=== PATIENT | male | born 1970 | race Caucasian/White ===

== ENCOUNTER 2020-05-26 10:20 | Emergency (ER) | payer OTHER, SELFPAY ==
[2020-05-26 10:30] VITALS: BP 132/70; PULSE 57; RESP 16; TEMP 37; O2SAT 98
--- NOTE | 2020-05-26 10:42 | ED.WOUNDLAC ---
HPI - Wound/Laceration General Chief Complaint: Wound/Laceration Stated Complaint: Tetnus shot Time Seen by Provider: 05/26/20 11:00 Source: patient and RN notes reviewed Mode of arrival: ambulatory Limitations: no limitations History of Present Illness HPI narrative: 50 year old male who presents to [facility] with complaints of pain and swelling to his left index finger at the PIP joint area. Patient states that 2 days ago he was cleaning out a a shed and he punctured his left index finger at the PIP joint with a pocket knife and since has experienced some pain and swelling to his left index finger. Patient has small puncture marked to dorsal aspect of his left index finger 0.25 in length with no depth noted. He displays no acute redness at puncture site but mild swelling to his left index finger noted, strong left radial pulse, full mobility of his left index finger noted. He reports that he has taken Tylenol and has applied Neosporin to wound area.Patient is right hand dominant. Onset (ago): day(s) (TuesdayMay 24) Location: other Extremity Location: Left: hand (left index finger) Place: home Patient tetanus UTD: No Context: accidental Associated symptoms: none and pain Treatments prior to arrival: other (Neosporin and Tylenol) Related Data Home Medications Medication Instructions Recorded Confirmed atorvastatin 80 mg PO DAILY 05/26/20 05/26/20 citalopram 40 mg PO DAILY 05/26/20 05/26/20 metoprolol succinate 50 mg PO DAILY 05/26/20 05/26/20 Allergies Allergy/AdvReac Type Severity Reaction Status Date / Time ibuprofen Allergy Unknown Unknown Verified 05/26/20 11:31 codeine Allergy Itching Verified 05/26/20 10:42 Review of Systems Review of Systems: Narrative: CONSTITUTIONAL: Denies fever, chills, or sweats. EYES: Denies visual changes, redness, or discharge. ENT: Denies rhinorrhea, congestion, sore throat, or otalgia. CARDIOVASCULAR: Denies chest pain, palpitations, or edema. RESPIRATORY: Denies cough or dyspnea. GASTROINTESTINAL: Denies abdominal pain, nausea, vomiting, or diarrhea. GENITOURINARY: Denies dysuria or hematuria. SKIN: Denies rash or itching.Small puncture wound to left index finger dorsal aspect at PIP joint MUSCULOSKELETAL: Denies back pain, joint pain, or myalgia. NEUROLOGIC: Denies headache, numbness, or weakness. PSYCHIATRIC: history anxiety or depression. All systems reviewed & are unremarkable except as noted in HPI and below PMFSH Past Medical History Medical History (Updated 05/28/20 @ 20:02 by Autumn Bridges NP) Hyperlipidemia Myocardial infarction Surgical History Surgical History (Updated 05/28/20 @ 19:56 by Autumn Bridges NP) Hx of heart artery stent Social History Social History (Updated 05/28/20 @ 20:04 by Autumn Bridges NP) Smoking status: Never smoker Alcohol intake: never Substance use: never Living arrangements: with family Gender identity (if verbalized by the patient): Male Comments at time of signature agree with nursing documentation of past medical, surgical and social history .There is no family history pertinent to presenting complaint. Exam Narrative: Exam Narrative: GENERAL: Well-appearing, well-nourished, and in no acute distress. HEAD: Normocephalic, atraumatic. EYES: PERRLA and EOMI. ENT: Nares clear, no rhinorrhea or epistaxis. Mucous membranes moist. NECK: Supple. No lymphadenopathy CHEST: Clear to auscultation. No respiratory distress.SAO2 98% on room air. HEART: Regular rate and rhythm, bradycardia is on beta eligio, No murmur heard. Normal peripheral pulses. ABDOMEN: Soft, nontender, nondistended, normal active bowel sounds. EXTREMITIES: Normal range of motion. No edema. SKIN: Warm, dry, no rash.0.25 cm puncture area to dorsal aspect of PIP joint of left index finger with mild swelling noted to finger with stated throbbing pain, no redness or acute warmth to left index finger. mobility sensation and circulation is intact
--- NOTE | 2020-05-26 11:00 | PC.NURSE ---
PT INFORMED WE DO NOT HAVE THE TDAP AVAILABLE AT THIS TIME AND MAY COME BACK AFTER 1230 TODAY WHEN IT WILL BE RESTOCKED PER PHARMACY. MAY RETURN FOR TDAP AFTER 1230 OR GET AT [facility] WHEN HE PICKS UP RX
--- NOTE | 2020-05-26 13:20 | PC.NURSE ---
PT HAS RETURNED TO RECEIVE TDAP.
[2020-05-26] MEDS: TETANUS,DIPHTHERIA,AC PERTUSSIS ADULT (0.5 ML) BOOSTRIX IM (13:27)
== END 2020-05-26 13:47 | disposition home or self-care (01) ==
PROVIDERS: Emergency Provider Registered Nurse; PCP Internal Medicine Geriatric Medicine
DX: S61.231A Puncture wound without foreign body of left index finger without damage to nail, initial encounter (principal); W26.0XXA Contact with knife, initial encounter; Z23 Encounter for immunization; E78.5 Hyperlipidemia, unspecified; I25.2 Old myocardial infarction; Z95.5 Presence of coronary angioplasty implant and graft
CPT/HCPCS: 90471; 90715; 99203; G0463

== ENCOUNTER 2022-07-14 07:44 | Outpatient (CLI) | payer OTHER, SELFPAY ==
--- NOTE | ~2022-07-14 | MR_ITS ---
EXAMINATION: MR shoulder RT wo con DATE: 07/14/2022 09:03 INDICATION: Right shoulder pain TECHNIQUE: Magnetic resonance imaging (MRI) of the right shoulder was performed without intravenous c ontrast. Sequences included axial PD-weighted FS FSE, coronal oblique PD-weighted FS FSE, coronal obl ique T2-weighted FS FSE, sagittal PD-weighted FS FSE, and sagittal T1-weighted SE. COMPARISON: None. FINDINGS: Coracoacromial arch: The acromion undersurface is curved in morphology (type II). The coracoacromial ligament is normal. M ild to moderate acromioclavicular osteoarthritis with tiny associated degenerative subchondral cyst. Rotator cuff: Mild to moderate supraspinatus and infraspinatus tendinopathy with prominent the conjoined portion of the tendon where there is a small mild bursal sided tear located approximately 1.5 cm medial to the greater tuberosity insertion, measuring 5 mm AP and involving approximately one third of the tendon t hickness. The teres minor and subscapularis tendons are normal. Normal rotator cuff muscle bulk and s ignal. Biceps tendon, glenoid labrum and glenohumeral cartilage: Mild tendinopathy without discrete tear of the intra-articular portion of the long head biceps tendon . There is amorphous mild increased signal involving the anterior to anteroinferior left glenoid labr um consistent with degenerative tearing. Remainder of the labrum appears normal. Mild partial-thickne ss cartilage loss with smooth chondral surface and without degenerative subchondral changes along the inferomedial aspect of the humeral head and along the cephalad third of the glenoid. Glenohumeral ca rtilage is normal. Fluid: Small amount of fluid in the long head biceps tendon sheath which is disproportionate to the small ph ysiologic amount fluid in the glenohumeral joint space which can be seen with bicipital tenosynovitis . No loose osteochondral bodies. Is also a small amount of fluid in the subacromial/subdeltoid bursa consistent with mild bursitis. Bones: Normal marrow signal with no edema, fracture or abnormal marrow replacing process. Mild cystic change at the greater tuberosity. IMPRESSION: 1. Mild to moderate supraspinatus and infraspinatus tendinopathy with small mild partial-thickness bu rsal sided tear at the critical zone of the conjoined portion of the supraspinatus and infraspinatus tendons. 2. Mild bicipital tenosynovitis with mild tendinopathy without tear of the intra-articular portion of the tendon. 3. Mild glenohumeral osteoarthritis with mild degenerative tearing at the anterior to anteroinferior glenoid labrum. 4. Mild subacromial/subdeltoid bursitis. Reviewed, dictated and finalized at location A. IMPRESSION: 1. Mild to moderate supraspinatus and infraspinatus tendinopathy with small mil d partial-thickness bursal sided tear at the critical zone of the conjoined por tion of the supraspinatus and infraspinatus tendons. 2. Mild bicipital tenosynovitis with mild tendinopathy without tear of the intr a-articular portion of the tendon. 3. Mild glenohumeral osteoarthritis with mild degenerative tearing at the anter ior to anteroinferior glenoid labrum. 4. Mild subacromial/subdeltoid bursitis.
== END 2022-07-14 07:45 | disposition home or self-care (01) ==
PROVIDERS: PCP Internal Medicine Geriatric Medicine
DX: M25.511 Pain in right shoulder (principal); S43.491A Other sprain of right shoulder joint, initial encounter; M65.821 Other synovitis and tenosynovitis, right upper arm; M19.011 Primary osteoarthritis, right shoulder; M75.51 Bursitis of right shoulder
CPT/HCPCS: 73221

== ENCOUNTER 2025-08-01 15:22 | Outpatient (CLI) | payer OTHER, SELFPAY ==
--- OUTSIDE RECORDS SUMMARY | 2025-08-01 15:24 | XMS_ITS | Clinical Summary ---
Author Organization [facility] Address [address] [place] [address] Care Team Providers Care Patrol Driver Name Role Phone Hellen Bernal MD Primary Care Provider [phone] Kassi Esqueda MD Unavailable Benjie Riddle MD Unavailable [phone] Marry Conn MD Unavailable [phone] Deena Moreno MD Unavailable Gee Smiley MD Unavailable [phone] Siva Larson MD Unavailable Geoff Lan MD PhD Unavailable Robyn Swain OD Unavailable Allergies Active Allergy Reactions Criticality Noted Date Comments Codeine Unknown Low 06/03/2017 Escitalopram Oxalate Other (See comments) Low 07/22 Sexual dysfunction Medications lancets misc 1 each by other route as directed Check blood sugar daily 100 each 2 3 Active blood glucose diagnostic strip 1 each by other route as directed Check blood sugar daily 50 strip 2 3 Active blood-glucose meter misc Use daily or as directed for monitoring of diabetes. 1 each 3 Active aspirin 81 mg chewable tabletIndication s:Ischemic heart disease due to coronary artery obstruction Take 1 tablet (81 mg total) by mouth daily 90 tablet 3 5 Active atorvastatin (LIPITOR) 80 mg tabletIndication s:Ischemic heart disease due to coronary artery obstruction Take 1 tablet (80 mg total) by mouth daily 90 tablet [address] (CYMBALTA) 30 mg capsuleIndicatio ns:Mood disorder Take 1 capsule (30 mg total) by mouth daily 90 capsule 3 5 11/14/19 Active metFORMIN XR (GLUCOPHAGE XR) 500 mg 24 hr tabletIndication s:Type 2 diabetes mellitus without complication, without long-term current use of insulin (HCC) Take 2 tablets (1,000 mg total) by mouth daily with breakfast 180 tablet 2 5 Active metoprolol XL (TOPROL-XL) 50 mg extended release tabletIndication s:Ischemic heart disease due to coronary artery obstruction Take 1 tablet (50 mg total) by mouth daily 90 tablet 3 5 Active tirzepatide (MOUNJARO) 2.5 mg/0.5 mL pen injector injectionIndicat ions:Type 2 diabetes mellitus without complication, without long-term current use of insulin (HCC) Inject 0.5 mL (2.5 mg total) under the skin once a week 2 mL 1 5 Active Active Problems Problem Noted Date Diagnosed Date Chewing tobacco nicotine dependence without comp lication 03/08/2024 Hx of colonic polyps 11/09/2023 Assessment & Plan (11/11/2023 6:51 PM GENERAL MANAGER [employer]AND [employer]): Last colonoscopy from 03/2022 showed greater than 30 1 to 3 mm polyps in the sigmoid and rectum consistent with hyperplastic polyps. Will schedule repeat colonoscopy given hx of Marte syndrome Right shoulder pain 05/14/2022 Assessment & Plan (06/10/2023 10:58 AM CDT): New burning pain to posterior shoulder, no radiation. Tenderness as noted above, no acute findings on exam. Likely tendonitis, tylenol/ibuprofen as needed. Aspercreme with lidocaine patches. Heat/ice as tolerated. Assessment & Plan (05/14/2022 8:55 AM CDT): Presents with R shoulder pain worse in the last week. Likely rotator cuff strain, denies injury or weakness. Positive Neers test on exam, no other acute findings. Will send to PT for evaluation. Encouraged Tylenol/Ibuprofen as needed for pain. Ice as tolerated. Can continue OTC creams also. Work note provided,copy in chart. Follow up in 6 weeks, sooner if needed. 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 Assessment & Plan (11/11/2023 6:58 PM GENERAL MANAGER [employer]AND DEPARTMENT): No active GI issues aside from some hemorrhoids with occasional bleeding Sister with Marte syndrome had hysterectomy, possible colon cancer, father with colon cancer No smoking, ETOH or illicit drug use Last colonoscopy from 03/2022 showed > 30 1 to 3 mm polyps in the sigmoid and rectum consistent with hyperplastic polyps EGD 03/2022 showed mildly active chronic duodenitis, carditis, gastritis and fundic gland polyps Labs from 05/2023 showed normal BMP, mildly decreased hemoglobin 12.9 otherwise normal CBC and iron studies. Normal LFTs from 02/2023 Plan Schedule colonoscopy Routine EGD surveillance not indicated given low risk with no family hx of gastric, or duodenal cancer and no active GI symptoms Assessment & Plan (08/05/2023 8:51 AM GENERAL MANAGER [employer]AND DEPARTMENT): Last colonoscopy in 03/2022 at [facility] showed over 30 benign polyps without bleeding. Recommended repeat in 1 year. Patient would prefer GI closer to home. Will REFER to Dr. Duffy at [facility]. No acute symptoms or findings on exam. Continue current regimen. Family history of Marte syndrome 12/19/2020 Family history of prostate cancer 12/19/2020 Obesity (BMI 30-39.9) 02/22/2020 Assessment & Plan (08/05/2023 8:41 AM GENERAL MANAGER [employer]AND DEPARTMENT): Up 4 lbs in last month on Ozempic. BMI at 34.3. no acute findings on exam. Will refill ozempic to 0.5 mg weekly due to abdominal pain with 1mg dose. Educated on AHA recommendation for heart healthy exercise. Continue heart healthy diet. Assessment & Plan (07/08/2023 8:40 AM CDT): Down another 6 lbs in last month on Ozempic. BMI at 33.5. no acute findings on exam. Will decrease ozempic to 0.5 mg weekly due to persistent abdominal pain. Educated on AHA recommendation for heart healthy exercise. Continue heart healthy diet. Assessment & Plan (06/10/2023 10:55 AM CDT): Down another 6 lbs in last month on Ozempic. BMI at 34.4. no acute findings on exam. Will increase ozempic to 1 mg weekly. Educated on AHA recommendation for heart healthy exercise. Continue heart healthy diet. Ischemic heart disease due to coronary artery ob struction 10/07/2017 Overview (02/17/2020): Stents 2006 2 RCA stents 02-24-[address] Riddle STENTS 2009 Three coronary stents in the right coronary artery 2009 DR. RIDDLE Assessment & Plan (12/16/2023 10:54 AM CDT): Stable on current regimen, no acute findings on exam, vitals stable. Labs from May. Continue current regimen. Refilled metoprolol and atorvastatin in office today. Chronic blood loss anemia 06/03/2017 Mood disorder 04/16/2017 Assessment & Plan (12/16/2023 10:55 AM CDT): Stable on current dose of Cymbalta. No acute findings on exam. Refilled today in office, relaxation techniques as previously discussed. Assessment & Plan (04/29/2023 12:41 PM CDT): Stable on current dose of Cymbalta. No acute findings on exam. Refilled today in office, relaxation techniques as previously discussed. Assessment & Plan (02/25/2023 12:25 PM CDT): Stable on current dose of Duloxetine. No new symptoms or concerns. Continue current regimen. Assessment & Plan (01/26/2023 9:06 PM CDT): wellbutrin not helping at all. citalopram made him too sleepy but helped with mood. PHQ-2 score of 1, ARNALDO-7 score of 3. Will rx Duloxetine as instructed. Sleep hygiene and relaxation techniques as previously discussed. Follow in 1 month. Assessment & Plan (12/10/2022 9:47 AM CDT): Citalopram working for mood, no new stressors. No SI/HI. No excessive caffeine use. Only sleeping approx 5 hours per night. No acute findings on exam. Will switch from Citalopram to wellbutrin XR 150mg daily in hopes this will improve fatigue. Educated blood sugars can also be causing fatigue, see plan for prediabetes above. Relaxation techniques encouraged. Use good sleep hygiene. Follow up 1 month. Restless leg 04/08/2017 Overview (04/08/2017): Confirmed on sleep test August 2013, Started Requip trial March 2017 Multiple-type hyperlipidemia 02/02/2014 Overview (12/22/2016): Hyperlipemia, mixed Bleeding hemorrhoids 02/02/2014 Overview (04/08/2017): Bleeding hemorrhoid treated with infrared coagulation by Dr. Conn August 2016 Assessment & Plan (07/18/2017 11:10 AM CDT): The patient was recently treated by GI for internal bleeding hemorrhoids, unfortunately a few days later the patient states he developed bleeding to the point if not more than prior to treatment. He continued to have pain. The hemorrhoidectomy procedure was explained to the patient, with special attention given to the difficult/painful post operative period. The hemorrhoids are grade 2-3. He wishes to proceed with the intervention. KATHIA (obstructive sleep apnea) 07/13/2013 Overview (06/29/2019): KASSI ESQUEDA MD MANAGING TWICE YEARLY OF JUNE 2019 IMPRESSION sleep study read by Dr. Esqueda August 2013 The above polysomnogram documents evidence of 1. Positive pressure therapy is effective in treated the patient's sleep disorder breathing. 2. Continuous positive pressure of 9 cm seems to be the best attempted pressure. 3. A small ResMed Moran F X nasal pillow was used. 4. Severe and continuous periodic limb movements were noted. Clinical correlation is recommended. AXIS A: Obstructive sleep apnea syndrome, 327.23. AXIS B: Polysomnography, 02346. AXIS C: Periodic limb movement, 327.51. August 12, 2013 at [facility] KASSI ESQUEDA Final View Details SLEEP DISORDER REPORT Patient: BYRON TAM Account: [id number] Room No: : 1970 Patient Type: [facility] Attend.: Hellen Bernal M.D. Admit Date: 08/12/2013 Dict.: Kassi Esqueda M.D., D.M. Disch. Date: 08/12/2013 COMPREHENSIVE POLYSOMNOGRAM INDICATION FOR STUDY The patient is a 43-year-old obese gentleman with symptoms of snoring, witnessed stoppage of breath while sleeping, and restless sleep. The present study was ordered as a titration study. No prior baseline details available for review. PAST MEDICAL HISTORY Heart attack and depression. VITAL STATISTICS Age: 43 years. Height: 66 inches. Weight: 202 pounds. Body mass index: 32.9. PROCEDURE The patient underwent an overnight polysomnogram with multiple-channel polysomnography to include EEG, sleep stage recording, cardiorespiratory monitoring, positive pressure therapy, as well as videotaping. DESCRIPTION OF POLYSOMNOGRAPHIC FINDINGS The patient's total time in bed was 453.8 minutes. Total sleep time was 289 minutes. Sleep efficiency was 53.7%. Latency from lights out to stage N1 was 68.1 minutes, latency to stage N2 was 100.1 minutes and latency to stage REM was 183 minutes. Sleep stage recording revealed stage awake of 166 minutes. Stage non-REM comprised 229.5 minutes (79.4% of total sleep time). This included stage N1 of 45.5 minutes (15.7% of total sleep time) and stage N2 of 184 minutes (63.7% of total sleep time). Stage REM comprised 59.5 minutes (24% of total sleep time). Continuous positive pressure therapy was initiated and pressures of 4 to 9 cm of water were attempted. Due to emergence of increasing central apneas, bilevel therapy with a backpack rate was added. Continuous positive pressures of 9 cm seem to be the best attempted pressure. Total recording was 185.5 minutes. Sleep efficiency was 85.2%. Adequate REM supine was obtained. The residual apnea/hypopnea index was 7.6. The lowest oxygen saturation was 87.6%. He seemed to tolerate the procedure well. A small Moran ResMed FX nasal pillow was used. Limb movement recording revealed 229 periodic limb movements. Periodic limb movement index was 47.5. Periodic limb movement arousal index was 4.8. Average heart rate during awake was 61.7 and during sleep was 59.4. The heart rhythm was sinus rhythm. IMPRESSION The above polysomnogram documents evidence of 1. Positive pressure therapy is effective in treated the patient's sleep disorder breathing. 2. Continuous positive pressure of 9 cm seems to be the best attempted pressure. 3. A small ResMed Moran F X nasal pillow was used. 4. Severe and continuous periodic limb movements were noted. Clinical correlation is recommended. AXIS A: Obstructive sleep apnea syndrome, 327.23. AXIS B: Polysomnography, 34021. AXIS C: Periodic limb movement, 327.51. Diplomate in Sleep Study ([place] [employer] and [employer]) Kassi Esqueda M.D., D.M. KRIS/sean Resolved Problems Problem Noted Date Diagnosed Date Resolved Date Morbid obesity with BMI of 40.0-44.9, adult 11/05/2022 03/17/2023 Prediabetes 11/05/2022 03/08/2024 Assessment & Plan (12/19/2023 8:40 PM CDT): Doing well on 0.5mg dose of mounjaro. Discussed going back up to 1mg dose but patient would like to stay at 0.5mg for awhile. Weight stable but still admits an appetite decrease. Still taking Metformin BID. No acute findings on exam. Last HbA1c in February was 5.7. repeat BMP was ordered but not completed, encoxruaged patient to get this drawn today. Refilled 0.5mg dose. Continue metformin as directed and low carb diet with heart healthy exercise. Keep follow and repeat diabetic labs in February. ADDENDUM: labs were still not done, will have staff call patient to have him come in for blood draw. Assessment & Plan (08/05/2023 8:40 AM GENERAL MANAGER [employer]AND DEPARTMENT): Doing well on 0.5mg dose of mounjaro. Discussed going back up to 1mg dose but patient would like to stay at 0.5mg for awhile. Up 4 lbs in last month but still admits an appetite decrease. Still taking Metformin BID. No acute findings on exam. Last HbA1c in February was 5.7. Refilled 0.5mg dose. Continue metformin as directed and low carb diet with heart healthy exercise. Assessment & Plan (07/08/2023 8:39 AM CDT): Taking ozempic weekly. Down 6lbs in 1month, no GI issues. Still taking Metformin BID. No acute findings on exam. Last HbA1c in February was 5.7. Will decrease to 0.5 mg dose due to persistent abdominal pain. Continue metformin as directed and low carb diet with heart healthy exercise. Assessment & Plan (06/10/2023 10:56 AM CDT): Taking ozempic weekly. Down 6lbs in 1month, no GI issues. Still taking Metformin BID. No acute findings on exam. Last HbA1c in was February was 5.7. Will increase to 1mg dose. Continue metformin as directed and low carb diet with heart healthy exercise. Assessment & Plan (04/29/2023 12:43 PM CDT): Re-started on Ozempic 6 weeks ago. Down 9lbs in 1month with sample pen, no GI issues. Still taking Metformin BID. No acute findings on exam. Last HbA1c in february was 5.7, fasting glucose on labs in november was 113. Will increase to 0.5mg dose. Continue metformin as directed and low carb diet with heart healthy exercise. Assessment & Plan (02/25/2023 12:24 PM CDT): Ozempic was denied through insurance despite PA. Down 7lbs in 1month with sample pen, no GI issues. Still taking Metformin BID. No acute findings on exam. Last HbA1c in 02/2021 was 5.6, fasting glucose on labs in november was 108. Continue metformin as directed and low carb diet with heart healthy exercise. Assessment & Plan (01/26/2023 9:11 PM CDT): Tolerating Metformin BID but still not losing any weight despite diet and walking. States morning sugars can get as high as 200. No acute findings on exam. BMI at 43.9. Given sample pen of Ozempic today in office. Continue diet/exercise. Follow in 1 month. Assessment & Plan (12/10/2022 12:15 PM CDT): Tolerating Metformin daily. AM sugars 120-170 according to home record. One sugar over 200 after morning after eating donuts. Most recent HbA1c was 02/2021 at 5.6. fasting glucose on recent labs was 108, all other labs unremarkable. Will increase metformin to BID. Discussed low carb diet in detail. Advised heart healthy exercise and weight loss. Follow in 1 month. Physical deconditioning 12/11/2021/12/2022 Encounter for screening for upper gastrointestinal disorder 10/23/2021 03/17/2023 Overview (10/23/2021): Added automatically from request for surgery [id number] Guaiac positive stools 07/13/201902/14 Overview (07/13/2019): Added automatically from request for surgery [id number] Chemosis of conjunctiva, left 07/12/2018 02/15/2020 Allergic reaction 07/12/2018 06/29/2019 Gastroesophageal reflux disease 02/02/2014 04/16/2017 Overview (12/22/2016): GERD (gastroesophageal reflux disease) Tiredness 11/16/2013 12/10/2022 Overview (12/25/2016): Tiredness Immunizations Immunization Administration Dates Next Due Influenza, Quadrivalent, Spl it, Preservative Free, Intramuscular 11/05/2022,09/05/2020,06/29/2019,06/23 MMR 11/08/2014 Pneumococcal Polysaccharide PPV23 06/29/2019 Tdap 12/11/2021,10/15/2011 Surgical History Surgery Date Site/Laterality Comments CARDIAC STENT PLACEMENT 07/20/2007 - 08/18/2007 COLONOSCOPY 06/16/2016 BAND HEMORRHOIDECTOMY 06/19/2017 - 07/19/2017 HEMORRHOID SURGERY 07/28/2017 Internal & External single column CARDIAC STENT PLACEMENT 02/24/[address] Riddle, 2 RCA stents ESOPHAGOSCOPY / EGD 04/11/2022 (+) Dr. Gee Wallace, peptic duodenitis COLONOSCOPY 04/14/2022 (+) Dr. Wallace single polyp pathology (-) hyperplastic COLONOSCOPY 11/09/2024 Sivashashi Larson, at [facility]- Patient with normal colonoscopy. Recommend high-risk screening every 5 years MD Gastroenterolog Medical History Medical History Date Comments Adjustment disorder with mixed anxiety and depre ssed mood 04/16/2017 Gastroesophageal reflux disease 02/02/2014 Hyperlipidemia KATHIA (obstructive sleep apnea) MSH6-related Marte syndrome (HNPCC5) 2020 Family History Medical History Relation Name Comments Prostate cancer Father Breast cancer Father's Sister 1 Breast cancer Father's Sister 2 No Known Problems Maternal Grandfather di ed in 80s No Known Problems Maternal Grandmother di ed in 80s Lung cancer Mother lung surg. age 51 Kidney disease Paternal Grandfather Breast cancer Paternal Grandmother Breast cancer Paternal cousin Endometrial cancer Sister 1 Deena Marte Syndrome Sister 1 Deena MSH6+ No Known Problems Sister 2 Keyana Relation Name Status Comments Father (Age 86) Father's Sister 1 Father's Sister 2 Maternal Grandfather (Age 85) Maternal Grandmother (Age 85) Mother (Age 51) Paternal Grandfather (Age 75) Paternal Grandmother Paternal cousin Alive Sister 1 Deena Alive Sister 2 Keyana Alive Social History Tobacco Use Types Packs/Day Years Used Date Smoking Tobacco: Former Smokeless Tobacco: Current Chew Tobacco Cessation:Ready to Q uit: Not Asked; Counseling Given: Not Answered Alcohol Use Standard Drinks/Week Comments Yes 0 (1 standard drink = 0.6 oz pur e alcohol) occassional AUDIT-C Answer Date Recorded Q1: How often do you have a drink containing alc ohol? 2-4 times a month 04/14/2022 Q2: How many drinks containi ng alcohol do you have on a typical day when you are drinking? 1 or 2 04/14/2022 Q3: How often do you have si x or more drinks on one occasion? 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 on file Not on file Not on file Last Filed Vital Signs Vital Sign Reading Time Taken Comments Blood Pressure 122/76 12/13/2024 10:00 AM CDT Pulse 74 12/13/2024 10:00 AM CDT Temperature 36.4 C (97.5 F) 11/14/2024 8:59 AM GENERAL MANAGER [employer]AND [employer]PART[employer] Respiratory Rate 16 11/14/2024 8:59 AM GENERAL MANAGER [employer]AND [employer]MENT Oxygen Saturation 95% 11/14/2024 8:59 AM GENERAL MANAGER [employer]AND [employer]PARTMENT Inhaled Oxygen Concentration - - Weight 93.4 kg (206 lb) 12/13/2024 10:00 AM CDT Height 167.6 cm (5' 6) 12/13/2024 10:00 AM CDT Body Mass Index 33.25 12/13/2024 10:00 AM CDT Plan of Treatment Health Maintenance Due Date Last Done Comments Dilated Eye Exam 1970 Pneumococcal vaccine <65 (2 of 2 - PCV) 06/29/2020 06/29/2019 Zoster Vaccine (1 of 2) 2021 Colon Cancer Screening-Colonoscopy 04/14/2023 04/14/2022, 06/16/2016, 06/16/2016 Hemoglobin A1C 05/16/2025 11/16/2024, 02/18, 02/27/2021 Covid-19 Vaccine (3 - 2024-2 6 season) 2025 05/29/2021, 05/01/2021 Influenza Vaccine (#1) 2025 , 09/05/2020, 06/29/2019, Additional history exists Depression Screening 11/14/2025 11/14/2024, 03/17/2023, 01/21/2023, Additional history exists Foot Exam 11/14/2025 11/14/2024 Regular Well Visit/Exam 18-64 11/14/2025, 03/17/2023, 12/11/2021, Additional history exists Albumin Creatinine Ratio, Urine 11/16/2025 11/16/2024, 03/11/2023, 03/13/2021 Lipid Panel 11/16/2025 11/16/2024, 03/0 12/2021, 02/27/2021, Additional history exists eGFR 11/16/2025 11/16/2024, 05/20, 03/11/2023, Additional history exists Prostate Cancer Screening-PSA 11/16/2026, 03/17/2023, 11/20/2021 DTaP/Tdap/Td Vaccine (3 - Td or Tdap) 12/12/2031 12/11/2021, 10/15/2011 Hepatitis B Screening Completed 11/16/2024 Hepatitis C Screening Completed 11/16/2024 Medical Devices Implanted Type Area Sec Accountant Device Identifier Shelf Expiration Date Model / Serial / Lot System Coronary Stent Synergy Pebax Everolimus Eluting [place] Chromium Plga L28 Mm L144 Cm Od3.5 Mm Radiopaque 1 Access Port Inflation Lumen Accepts .014 In Guidewire - [id number] Implanted:Qty: 1 on 02/23/2018 by Benjie Riddle MD at [facility] [employer] 10/25/2018 [id number] / / [id number] System Coronary Stent Synergy Pebax Everolimus Eluting [place] Chromium Plga L20 Mm L144 Cm Od2.75 Mm Radiopaque 1 Access Port Inflation Lumen Accepts .014 In Guidewire - [id number] Implanted:Qty: 1 on 02/23/2018 by Benjie Riddle MD at [facility] [employer] 08/16/2018 [id number] / / [id number] Procedures Procedure Name Priority Date/Time Associated Diagnosis Comments HEPATITIS C ANTIBODY Routine 11/16/2024 8:48 AM GENERAL MANAGER [employer] Need for hepatitis C screening test EGFR Routine 11/16/2024 8:48 AM GENERAL MANAGER [employer] Type 2 diabetes mellitus without complication, without long-term current use of insulin (HCC) HEMOGLOBIN A1C Routine 11/16/2024 8:48 AM GENERAL MANAGER [employer]AND [employer] Type 2 diabetes mellitus without complication, without long-term current use of insulin (HCC) LIPID PANEL Routine 11/16/2024 8:48 AM GENERAL MANAGER LAND DEPARTMENT Annual physical exam Type 2 diabetes mellitus without complication, without long-term current use of insulin (HCC) Ischemic heart disease due to coronary artery obstruction (HCC) ALBUMIN CREATININE RATIO, URINE Routine 11/16/2024 8:48 AM GENERAL MANAGER [employer]AND DEPARTMENT Type 2 diabetes mellitus without complication, without long-term current use of insulin (HCC) PSA SCREEN Routine 11/16/2024 8:48 AM GENERAL MANAGER [employer]AND DEPARTMENT Annual physical exam 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 73 m2 Comment: Interpretive Data Reference Interval Normal >/= 90 mL/min/1.73m2 Mildly decreased* 60 - 89 mL/min/1.73m2 Mildly to moderately decreased 45 - 59 mL/min/1.73m2 Moderately to severely decreased 30 - 44 mL/min/1.73m2 Severely decreased 15 - 29 mL/min/1.73m2 Kidney Failure < 15 mL/min/1.73m2 *Relative to young adult level Estimated glomerular filtration rate is determined by the 2020 CKD-EPI equation recommended by the National Kidney Foundation (A Unifying Approach to GFR Estimation: Recommendations of the NKF-ASK Task Force on Reassessing the Inclusion of Race in Diagnosing Kidney Disease, JASN 2020). The CKD-EPI equation should not be used for patients with unstable renal function and has not been validated in children and those over 70. Current interpretive data was last reviewed 2021. Testing performed by: [facility], [address] [place] [address]., [id number] Blood 11/16/2024 8:48 AM GENERAL MANAGER [employer]AND DE[employer]MENT 11/16/2024 12:40 PM GENERAL MANAGER [employer]AND [employer]PARTMENT us Hellen Bernal MD LAB BLOOD ORDERABLES Final Result Performing Organization Address [facility] Co de Phone Number CHANDRAKANT POLO [phone] [place] [address] * PSA screen (11/16/2024 8:48 AM GENERAL MANAGER LAND DEPARTMENT) PSA-Total 0.92 <=3.90 ng/mL Comment: Interpretive Data AGE SEX REFERENCE INTERVAL 0 minutes-150 years Female None 0 minutes-49 years Male None 50-59 years Male 0-3.90 60-69 years Male 0-5.40 70-79 years Male 0-6.20 80-150 years Male 0-6.20 The Gina PSA Total assay procedure was used. Results from different manufacturers or methods may not be comparable. Serial testing should be performed using the same method. Current interpretive data last revised 22. Testing performed by: [facility], [address] [place] [address]., [id number] Blood 11/16/2024 8:48 AM GENERAL MANAGER LAND DEPARTMENT 11/16/2024 12:21 PM GENERAL MANAGER LAND DEPARTMENT us Hellen Bernal MD LAB BLOOD ORDERABLES Final Result Performing Organization Address [facility] Co de Phone Number CHANDRAKANT POLO [address] [place] [address] * Hepatitis C antibody Blood (11/16/2024 8:48 AM GENERAL MANAGER LAND DEPARTMENT) Hep C Ab Nonreactive Nonreactive Comment: Interpretive Data Nonreactive: Antibodies to HCV not detected. Does NOT exclude the possibility of recent exposure to HCV. Equivocal: Equivocal for HCV antibodies. Supplemental molecular testing will be automatically performed to determine infection status in accordance with current CDC screening recommendations. Reactive: Positive for HCV antibodies. This may represent current or past HCV infection. Supplemental molecular testing will be automatically performed to determine current infection status in accordance with current CDC screening recommendations. Interpretive data was last revised on 2019. Testing performed by: [facility], [address] [place] [address]., [address] Blood 11/16/2024 8:48 AM GENERAL MANAGER LAND DEPARTMENT 11/16/2024 12:21 PM GENERAL MANAGER LAND DEPARTMENT us Hellen Bernal MD LAB MICROBIOLOGY - GENERAL ORDERABLES Final Result Performing Organization Address [facility] Co de Phone Number CHANDRAKANT [address] [facility] Department [place] [address] * Albumin Creatinine Ratio, Urine (11/16/2024 8:48 AM GENERAL MANAGER LAND DEPARTMENT) Albumin Ur 14.2 mg/L Comment: Interpretive Data No reference range established. Current interpretive data was last revised 2019. Testing performed by: [address] [address] Creatinine Ur 402.3 mg/dL CHANDRAKANT Comment: Interpretive Data No reference range established. Current interpretive data was last revised 2019. Testing performed by: [address] [address] Albumin Creatinine Ratio, Ur 4 1 - 29 mg/g CHANDRAKANT Comment:Testing performed by : [address] [address] Urine 11/16/2024 8:48 AM GENERAL MANAGER LAND DEPARTMENT 11/16/2024 12:21 PM GENERAL MANAGER LAND DEPARTMENT us Hellen Bernal MD LAB URINE ORDERABLES Final Result Performing Organization Address [facility] Co de Phone Number CHANDRAKANT [address] [facility] Department [employer] [place] [place] [address] * Hemoglobin A1c (11/16/2024 8:48 AM GENERAL MANAGER LAND DEPARTMENT) Hgb A1C 5.2 4.0 - 5.6 % Comment:Testing performed by : [address] [address] Estimated Average Glucose 103 mg/dL CHANDRAKANT POLO Comment: The ADA recommends reporting an estimated Average Glucose (eAG) with all Hemoglobin A1c results using the equation derived from a study of 507 normal and diabetic adults. Minority populations were underrepresented and children were not included. (Diabetes Care 31:9474-9530, 2008). The eAG is not equivalent to a fasting glucose. Testing performed by: [facility], [address] [place] [address]., [address] Blood 11/16/2024 8:48 AM GENERAL MANAGER LAND DEPARTMENT 11/16/2024 12:21 PM GENERAL MANAGER LAND DEPARTMENT us Hellen Bernal MD LAB BLOOD ORDERABLES Final Result CHANDRAKANT [address] Department [place] [address] * (ABNORMAL) Lipid panel (11/16/2024 8:48 AM GENERAL MANAGER LAND DEPARTMENT) Cholesterol 118 30 - 199 mg/dL Comment: Interpretive Data Ages < or = 19 years Acceptable: <170 mg/dL Borderline high: 170-199 mg/dL High: >or= 200 mg/dL Ages > or = 20 years Desirable: <200 mg/dL Borderline high: 200-239 mg/dL High: >or= 240 mg/dL Literature References: 1. Expert Panel on Integrated Guidelines for Cardiovascular Health and Risk Reduction in Children and Adolescents. Pediatrics 2011;128:S213 2. NCEP Expert Panel. Circulation 2004;110:227 Current Interpretive Data was last revised on 2018. Testing performed by: [facility], [address] [place] [address], [place]., [address] Triglycerides 111 <=149 mg/dL CHANDRAKANT POLO Comment: Interpretive Data Ages < or = 9 years Acceptable: <75 mg/dL Borderline high: 75-99 mg/dL High: >or= 100 mg/dL Ages 10 to 20 years Acceptable: <90 mg/dL Borderline high: 90-129 mg/dL High: >or= 130 mg/dL Ages > or = 20 years Desirable: <150 mg/dL Borderline high: 150-199 mg/dL High: 200-499 mg/dL Very high: >or= 499 mg/dL Literature References: 1. Expert Panel on Integrated Guidelines for Cardiovascular Health and Risk Reduction in Children and Adolescents. Pediatrics 2011;128:S213 2. NCEP Expert Panel. Circulation 2004;110:227 Current Interpretive Data was last revised on 2018. Testing performed by: [facility], [address] [place] [address]., [address] HDL 31(L) >=40 mg/dL CHANDRAKANT Comment: Interpretive Data Ages < or = 19 years Acceptable: >45 mg/dL Borderline low: 40-45 mg/dL Low: <40 mg/dL Ages > or = 20 years Desirable: >or= 60 mg/dL Low: <40 mg/dL Literature References: 1. Expert Panel on Integrated Guidelines for Cardiovascular Health and Risk Reduction in Children and Adolescents. Pediatrics 2011;128:S213 2. NCEP Expert Panel. Circulation 2004;110:227 Current Interpretive Data was last revised on 2018. Testing performed by: [address] [address] LDL, calculated 66 <=129 mg/dL CHANDRAKANT Comment: Interpretive Data Ages < or = 19 years Acceptable: <110 mg/dL Borderline high: 110-129 mg/dL High: >or= 130 mg/dL Ages > or = 20 years Optimal: <100 mg/dL Near optimal: 100-129 mg/dL Borderline high: 130-159 mg/dL High: >160 mg/dL Calculated using the Louis LDL-C estimating equation. This equation was implemented on 2024. Prior to this date LDL-C was estimated using the Friedewald equation. Literature References: 1. Expert Panel on Integrated Guidelines for Cardiovascular Health and Risk Reduction in Children and Adolescents. Pediatrics 2011;128:S213 2. NCEP Expert Panel. Circulation 2004;110:227 3. Louis Bourne et al. JANA Cardiol. 2020 January 17;5(5):540-548. doi: 10.1001/jamacardio.2020.0013 Current Interpretive Data was last revised on 2024. Testing performed by: [address] [address] Non-HDL Cholesterol 87 mg/dL CHANDRAKANT Comment: Interpretive Data Ages < or = 19 years Acceptable: <120 mg/dL Borderline high: 120-144 mg/dL High: >145 mg/dL Ages > or = 20 years When triglycerides are >200 mg/dL, Non-HDL cholesterol is a secondary target of therapy with treatment goals that are 30 mg/dL greater than the LDL cholesterol target. Literature References: 1. Expert Panel on Integrated Guidelines for Cardiovascular Health and Risk Reduction in Children and Adolescents. Pediatrics 2011;128:S213 2. NCEP Expert Panel. Circulation 2004;110:227 Current Interpretive Data was last revised on 2018. Testing performed by: [address], [address] Chol/HDL ratio 4 [facility] Comment:Testing performed by : [address] [address] Blood 11/16/2024 8:48 AM GENERAL MANAGER LAND DEPARTMENT 11/16/2024 12:21 PM GENERAL MANAGER LAND DEPARTMENT us Hellen Bernal MD LAB BLOOD ORDERABLES Final Result [address] [place] [address] * COLONOSCOPY (04/14/2022 1:06 PM CDT) Anatomical Region Laterality Modality Other Narrative Procedure Note Gee Smiley MD - 04/14/2022 1:06 PM CDT ENDOSCOPY LAB Patient Name: Byron Tam Procedure Date: 04/14/2022 1:06 PM Date of : 1970 Admit Type: Outpatient Age: 52 Gender: Male Attending MD: Gee Smiley M.D. Room: [facility] ENDOSCOPY ROOM 02 Note Status: Finalized Procedure: Colonoscopy Indications: Last colonoscopy: 2015, Marte Syndrome, [id number] Providers: Gee Smiley M.D. Referring MD: Medicines: Monitored Anesthesia Care Complications: No immediate complications. Estimated Blood Loss: Estimated blood loss was minimal. Procedure: Pre-Anesthesia Assessment: - Immediately prior to administration ofmedications, the patient was re-assessed for adequacy to receive sedatives. - Sedation was administered by an anesthesia professional. The sedation level attained wasmoderate. - The heart rate, respiratory rate, oxygen saturations, blood pressure, adequacy of pulmonary ventilation, and response to care were monitored throughout the procedure. - The physical status of the patient wasre-assessed after the procedure. The benefits, risks and alternatives of theprocedure and sedation were discussed and informed consentwas obtained. All questions were answered. Please referto the signed informed consent document in the medical record. The scope was passed under direct vision.The [id number] was introduced through the anusand advanced to the terminal ileum, with identificationof the appendiceal orifice and IC valve. Thecolonoscopy was performed without difficulty. The patient tolerated the procedure well. The quality of thebowel preparation was excellent. The quality of the bowel preparation was evaluated using the BBPS (BostonBowel Preparation Scale) with scores of: Right Colon = 3, Transverse Colon = 3 and Left Colon = 3 (entiremucosa seen well with no residual staining, smallfragments of stool or opaque liquid). The total BBPS score equals 9. The terminal ileum, the ileocecal valve,the appendiceal orifice and the rectum werephotographed. Bowel prep was administered using a split dose. Findings: Hemorrhoids were found on perianal exam. The digital rectal exam was normal. Pertinent negatives include no palpable rectal lesions. The terminal ileum appeared normal. >30 sessile polyps were found in the rectum, recto-sigmoid colon and sigmoid colon. The polyps were 1 to 3 mm in size. Eight of thesepolyps were removed with a piecemeal technique using a cold biopsy forceps. Resection and retrieval were complete. Non-bleeding external and internal hemorrhoids were found during retroflexion and during endoscopy. The hemorrhoids were moderate. The exam was otherwise without abnormality on direct and retroflexion views. Impression: - Hemorrhoids found on perianal exam. - The examined portion of the ileum was normal. - >30 1 to 3 mm polyps in the rectum, at the recto-sigmoid colon and in the sigmoid colon, eight were removed piecemeal using a cold biopsy forcepsfor sampling. Resected and retrieved. - Non-bleeding external and internal hemorrhoids. - The examination was otherwise normal on directand retroflexion views. Recommendation: - Discharge patient to home. - Advance diet as tolerated and high fiber diet indefinitely. - Continue present medications. - Use fiber, for example Citrucel, Fibercon, Konsylor Metamucil. - Await pathology results. - Repeat colonoscopy date to be determined after pending pathology results are reviewed for surveillance based on pathology results. - Continue routine yearly Marte syndrome screening including urinalysis and Account Services Analyst Oncology assessments,if needed. Consider upper endoscopy every 3-5 yearsfor those with higher risks including family history of stomach cancer and recurring symptoms of acidreflux or heartburn. See the NCCN guidelines for thelatest recommendations for Marte syndrome screening. - For polyp and cancer prevention: Consider daily aspirin if OK with primary care provider; Calcium, folate, and vitamin D; healthy diet low inprocessed and red meats, exercise regularly, maintain healthy weight. See [employer] Cancer website for moreprevention tips. - Contact Information: During normal business hours (8AM-4PM) - Pleasecall the Nurse Coordinator: [phone]. call person physician after hours, weekends andholidays: [phone] and asked for the Emmet-Rectalphysician business controller. Electronically signed by Gee Smiley MD Gee Smiley M.D. 04/14/2022 1:47:09 PM Number of Addenda: 0 Note Initiated On: 04/14/2022 1:06 PM Gee Smiley MD ENDOSCOPY PROCEDURES Final R esult from Last 3 Months or Most Recently Relevant to Health Maintenance Insurance [facility] PPO [facility] CHOICE PLUS [facility] CORE HEALTH PLAN [place] Advance Directives For more information, please contact: [phone] Documents on File Type Date Recorded Patient Air Chief Marshal Expl anation ADVANCE DIRECTIVE 11/14/2024 POWER OF A TTORNEY-MEDICAL ADVANCE DIRECTIVE 07/03/2018 POWER OF A TTORNEY-MEDICAL ADVANCE DIRECTIVE 06/23/2018 POWER OF A TTORNEY * Full Code (Latest Code Status on File) Date Activated Date Inactivated Comments 04/14/2022 11:06 AM 04/14/2022 6:26 PM * Full Code Date Activated Date Inactivated Comments 02/23/2018 4:29 PM 02/24/2018 12:47 PM Care Teams Patrol Driver Relationship Specialty Start Date End Date Hellen Bernal MD PCP - General 08/24/13 Kassi Esqueda MD Neurology 04/08/17 Benjie Riddle MD Cardiovascular Disease 04/08/17 Marry Conn MD Gastroenterology 04/08/17 Deena Moreno MD Grinder Brake Lining Genetics 01/30/21 Gee Smiley MD [address] [facility] [phone] [place] [address] Surgeon Colon and Rectal Surgery 05/29/21 Siva Larson MD [address] [facility] [phone] [place] [address] General Surgery 11/13/24 Geoff Lan MD PhD [address] [facility], [facility] [address] [place] [address] Referring Physician Gastroenterology 11/14/24 Robyn Swain OD [address] [place] [address] Optometry 11/14/24
--- OUTSIDE RECORDS SUMMARY | 2025-08-01 15:24 | XMS_ITS | Clinical Summary ---
Author Organization [facility] Address [address] [place] [address] Phone Care Team Providers Care Dental Appliance Fixer Name Role Phone Hellen Bernal MD Primary Care Provider [phone] Anastacia Maguire APRN, BONDING MOLDER Unavailable Allergies Active Allergy Reactions Criticality Noted Date Comments Codeine Rash,Itching Low 06/03/2017 Escitalopram Oxalate Other (see Comments) Low 07/22 Sexual dysfunction Medications citalopram (CeleXA) 40 MG Tablet Take 40 mg by mouth. 1 Active metoprolol Succinate (TOPROL-XL) 50 MG TABLET SR 24 HR Take 50 mg by mouth every morning. 1 Active Aspirin Low Dose 81 MG Chewable Tablet CHEW AND SWALLOW 1 TABLET DAILY 1 Active traZODone (DESYREL) 50 MG Tablet Take 25-100 mg by mouth. 0 Active promethazine-de xtromethorphan (PROMETHAZINE-D M) 6.25-15 MG/5ML SyrupIndication s:Cough Take 5 mL by mouth every 4 hours as needed for Cough. 240 mL 1 Active Additional Information Patient not taking.Reported on 10/26/2024 atorvastatin (LIPITOR) 80 MG Tablet Take 80 mg by mouth. 4 Active Blood Glucose Monitoring Suppl (GlucoCom Blood Glucose Monitor) Device Use daily or as directed for monitoring of diabetes. 3 Active Glucose Blood (Precision QID Test) Strip 1 Each by Other route. 3 Active DULoxetine (CYMBALTA) [address] Particles Take 30 mg by mouth daily. Active metFORMIN (GLUCOPHAGE-XR) 500 MG TABLET SR 24 HR TAKE 2 TABLETS BY MOUTH EVERY DAY WITH BREAKFAST Active Ozempic, 0.25 or 0.5 MG/DOSE, 2 MG/3ML Solution Pen-injector once a week. Tuesday 4 Active Multiple Vitamin (MULTI-VITAMIN PO) Take by mouth daily. 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 Conn August 2016 Family History Medical History Relation Name Comments Cancer Father Cancer Sister 1 other Sister 1 MARTE Other-comment Sister 2 MARTE Relation Name Status Comments Father Mother Sister 1 Sister 2 Alive Social History Tobacco Use Types Packs/Day Years Used Date Smoking Tobacco: Former Cigarettes 0 Q uit: 2013 Smokeless Tobacco: Current Chew Alcohol Use Standard Drinks/Week Comments Yes 0 (1 standard drink = 0.6 oz pur e alcohol) RARELY Sex and Gender Information Value Date Recorded Sex Assigned at Not on file Legal Sex Male 8:44 PM CDT Gender Identity Not on file Sexual Orientation Not on file Last Filed Vital Signs Vital Sign Reading Time Taken Comments Blood Pressure 128/82 11/09/2024 8:10 AM WATER VALVE MECHANIC Pulse 75 11/09/2024 8:10 AM WATER VALVE MECHANIC Temperature 36 C (96.8 F) 11/09/2024 8:10 AM WATER VALVE MECHANIC Respiratory Rate 12 11/09/2024 8:10 AM WATER VALVE MECHANIC Oxygen Saturation 96% 11/09/2024 8:10 AM WATER VALVE MECHANIC Inhaled Oxygen Concentration - - Weight 93.9 kg (207 lb) 10/26/2024 2:17 PM WATER VALVE MECHANIC Height 167.6 cm (5' 6) 10/26/2024 2:17 PM WATER VALVE MECHANIC Body Mass Index 33.41 10/26/2024 2:17 PM WATER VALVE MECHANIC Plan of Treatment Health Maintenance Due Date Last Done Comments Hepatitis C Virus (HCV) Screening 1970 Hepatitis B Immunization (1 of 3 - 19+ 3-dose series) 1990 Cologuard 2016 Immunochemical Fecal Occult Blood 2016 Pneumococcal Immunization (50+ years) (2 of 2 - PCV) 2021 06/29/2019 Zoster Immunization (1 of 2) 2021 Influenza Immunization (#1) 05/20/202510/20, 09/05/2020, 06/29/2019, Additional history exists SARS-COV-2 Immunization (3 - 2024- season) 2025 05/29/2021, 05/01/2021 Colonoscopy 11/09/2029 11/09/2024, 10/21, 04/14/2022 Colorectal Cancer Screening 11/09/2029 Respiratory Syncytial Virus (RSV) Immunization (Adult) (1 - 1-dose 75+ series) 2046 Pneumococcal Immunization Combined Discontinued 06/29/2019 DTaP/Tdap/Td Immunization Discontinued 12/11/2021, TdaP Immunization Completed 12/11/2021, 10/15/2011 Human Papillomavirus (HPV) Immunization Aged Out No longer eligible based on patient's age to complete this topic Meningococcal Immunization (ACWY) Aged Out No longer eligible based on patient's age to complete this topic Rotavirus Immunization Aged Out No lo nger eligible based on patient's age to complete this topic Procedures Procedure Name Priority Date/Time Associated Diagnosis Comments GI IMAGING - COLONOSCOPY Routine 11/09/2024 6:49 AM WATER VALVE MECHANIC from Last 3 Months or Most Recently Relevant to Health Maintenance Results * GI IMAGING - COLONOSCOPY (11/09/2024 6:49 AM WATER VALVE MECHANIC) us Siva Dada Larson MD IMG DIAGNOSTIC ORDERABLES Final Result from Last 3 Months or Most Recently Relevant to Health Maintenance Insurance [place] [address] [place] [id number] Care Teams Dental Appliance Fixer Relationship Specialty Start Date End Date Hellen Bernal MD [address] [facility] [place] [address] PCP - General Geriatric Medicine 03/05/21 Anastacia Maguire APRN, BONDING MOLDER [address] [place] [address] Nurse Practitioner Advanced Practice Nurse 06/05/24
--- OUTSIDE RECORDS SUMMARY | 2025-08-01 15:24 | XMS_ITS | Encounter Summary ---
Author Organization [facility] Address [address] [place] [address] Phone Care Team Providers Care Can Worker Name Role Phone Hellen Bernal MD Primary Care Provider [phone] Kassi Obregon MD Unavailable Benjie Riddle MD Unavailable [phone] Marry Conn MD Unavailable [phone] Pierre Lucas MD Unavailable [phone] Ernesto Álavrez MD Unavailable [phone] Deena Moreno MD Unavailable Gee Smiley MD Unavailable [phone] Diloln Hatch MD Unavailable Siva Larson MD Unavailable [phone] Geoff Lan MD PhD Unavailable [phone] Robyn Swain OD Unavailable [phone] Encounter Details Date Type Department Care Team (Late st Contact Info) Description 07/14/2022 Orders Only [facility] [address] [place] [address] Hellen Bernal MD [address] [place] [address] Social History Tobacco Use Types Packs/Day Years Used Date Smoking Tobacco: Former Smokeless Tobacco: Current Chew Alcohol Use Standard [...] more points, staff should administer the PHQ-9) 6 12/11/2021 Sex and Gender Information Value Date Recorded Sex Assigned at Not on file Legal Sex Male 10:00 AM ENGINEERING RECRUITER Gender Identity Not on file Sexual Orientation Not on file 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 Not on file Not on file documented as of this encounter Plan of Treatment Not on file documented as of this encounter Procedures Procedure Name Priority Date/Time Associated Diagnosis Comments SCAN - RADIOLOGY/IMAGING 07/14/2022 documented in this encounter Results * SCAN - RADIOLOGY/IMAGING (07/14/2022) Anatomical Region Laterality Modality Other Hellen Bernal MD Final Resu lt documented in this encounter Visit Diagnoses Not on filedocumented in this encounter Care Teams Can Worker Relationship Specialty Start Date End Date Hellen Bernal MD PCP - General 08/24/13 Kassi Obregon MD Neurology 04/08/17 Benjie Riddle MD Cardiovascular Disease 04/08/17 Marry Conn MD Gastroenterology 04/08/17 Pierre Lucas MD Surgeon General Surgery 07/22/17 11/13/24 Ernesto Á[place] [address] [facility] [address] [place] [address] Consulting Physician Cardiology 02/23/18 03/16/23 [place] [address] [facility] [address] [place] [address] Commercial Lines Account Executive Genetics 01/30/21 Gee Smiley MD [address] [facility] [phone] [place] [address] Surgeon Colon and Rectal Surgery 05/29/21 Dillon Hatch MD [address] [facility] [phone] [place] [address] Consulting Physician Urology 05/29/21 11/13/24 Siva Larson MD [address] [facility] [phone] [place] [address] General Surgery 11/13/24 Geoff Lan MD PhD [address] [facility], [facility] [address] [place] [address] Referring Physician Gastroenterology 11/14/24 Robyn Swain, OD [address] [place] [address] Optometry 11/14/24 documented as of this encounter
--- OUTSIDE RECORDS SUMMARY | 2025-08-01 15:24 | XMS_ITS | Encounter Summary ---
Author Organization [facility] Address [address] [place] [address] Phone Care Team Providers Care Woods Warden Name Role Phone Hellen Bernal MD Primary Care Provider + [phone] Kassi Obregon MD Unavailable Benjie Riddle MD Unavailable [phone] Marry Conn MD Unavailable [phone] Pierre Lucas MD Unavailable [phone] Ernesto Álvarez MD Unavailable Deena Moreno MD Unavailable Gee Smiley MD Unavailable Dillon Hatch MD Unavailable [phone] Erensto Álvarez MD Unavailable Siva Larson MD Unavailable [phone] Geoff Lan MD PhD Unavailable [phone] Robyn Swain OD Unavailable [phone] Encounter Details Date Type Department Care Team (Late st Contact Info) Description 07/21/2017 Orders Only [facility] [address] [place] [address] Hellne Bernal MD [address] [place] [address] Social History Tobacco Use Types Packs/Day Years Used Date Smoking Tobacco: Former Smokeless Tobacco: Current Chew Alcohol Use Standard Drinks/Week Comments Yes 0 (1 standard drink = 0.6 oz pur e alcohol) occassional Sex and Gender Information Value Date Recorded Sex Assigned at Not on file Legal Sex Male 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 Gender Identity Not on file Sexual Orientation Not on file documented as of this encounter Functional Status * BP Location Answer Date of Assessment Author Left arm 07/22/2017 10:37 AM CDT Sorin Fortune MA * BP Location Answer Date of Assessment Author Left arm 07/22/2017 10:37 AM CDT Sorin Fortune MA documented as of this encounter Plan of Treatment Not on file documented as of this encounter Visit Diagnoses Not on filedocumented in this encounter Additional Health Concerns Infection Onset Date Last Indicated Resolved Time COVID: Suspected 05/01/2021 05/01/2021 05/01/2021 11:37 AM CDT documented as of this encounter Care Teams Woods Warden Relationship Specialty Start Date End Date Hellen Bernal MD PCP - General 08/24/13 Kassi Obregon MD Neurology 04/08/17 Benjie Riddle MD Cardiovascular Disease 04/08/17 Marry Conn MD Gastroenterology 04/08/17 Pierre Lucas MD Surgeon General Surgery 07/22/17 11/13/24 Ernesto Á[place]arez [place] [id number] [facility] [address] [place] [address] Consulting Physician Cardiology 02/23/18 03/16/23 [place] [id number] [facility] [address] [place] [address] Order Detailer Genetics 01/30/21 Gee Smiley MD [address] [facility] [id number] [place] [address] Surgeon Colon and Rectal Surgery 05/29/21 Dillon Hatch MD [address] [facility] [place] [id number] [place] [address] Consulting Physician Urology 05/29/21 11/13/24 Ernesto Álvarez MD [address] [facility] [address] [place] [id number] Consulting Physician Cardiology 05/29/21 12/10/21 Siva Larson MD [address] [place] [address] [address] [place], [place] [address], [place] [address] General Surgery 11/13/24 Geoff Lan MD PhD [address] [facility] GASTROENTEROLOGY, [facility] [address] [place] [address] Referring Physician Gastroenterology 11/14/24 Robyn Swain, OD [address] [place] [address] Optometry 11/14/24 documented as of this encounter
[2025-08-01 19:20] LABS: Alanine Aminotransferase 24 U/L (6-50); Albumin Level 4.0 g/dL (3.5-5.1); Alkaline Phosphatase 99 U/L (38-126); Anion Gap 5 mmol/L (4-12); Aspartate Amino Transferase 42 U/L (17-59); Bilirubin,Total 0.8 mg/dL (0.2-1.3); Blood Urea Nitrogen 9 mg/dL (9-20); Calcium 8.7 mg/dL (8.4-10.2); Carbon Dioxide 32 mmol/L (22-30); Chloride 99 mmol/L (98-107); Cholesterol 104 mg/dL (0-200); Estimated Glomerular Filt Rate > 60; Glucose 99 mg/dL (65-110); HDL Direct 29 mg/dL; Potassium 4.5 mmol/L (3.4-5.0); Sodium 136 mmol/L (137-145); Total Protein 6.8 g/dL (6.3-8.2); Triglycerides 163 mg/dL (<150)
[2025-08-01 19:48] LABS: Thyroid Stimulating Hormone Reflex 0.445 uIU/mL (0.465-4.68)
[2025-08-01 22:09] LABS: Hemoglobin A1C 5.2 % (<5.7)
[2025-08-02 00:05] LABS: Free T4 Free Thyroxine Reflex 0.91 ng/dL (0.78-2.19)
[2025-08-02 00:56] LABS: Total Triiodothyronine (T3) 1.22 NG/ML (0.82-1.58)
== END 2025-08-01 15:23 | disposition home or self-care (01) ==
LOC: ANHBWCLAB 15:23
PROVIDERS: PCP Nurse Practitioner Adult Health; Visit Provider Internal Medicine Cardiovascular Disease
DX: E78.5 Hyperlipidemia, unspecified (principal); E11.9 Type 2 diabetes mellitus without complications
CPT/HCPCS: 36415; 80053; 80061; 83036; 84439; 84443; 84480